=== PATIENT | male | born 1975 | race Caucasian/White ===

== ENCOUNTER 2021-09-21 09:08 | Emergency (ER) | payer OTHER ==
[~2021-09-21] VITALS: Ht 185.4 cm; Wt 79.4 kg
[~2021-09-21 09:08] MED LIST: HYDACE5 PO; IBUP800; NAPR500 PO; RXHYDACE PO; TRAM50 PO
[2021-09-21] MEDS ORDERED: IBUP600 PO (10:21)
[2021-09-21] MEDS ORDERED: BENADRYL25 MG PO (10:21)
[2021-09-21 10:45] LABS: BASOPHILS ABSOLUTE AUTO 0.01 K/mm3 (0.00-0.23); BASOPHILS PERCENT AUTO 0 % (0-2); EOSINOPHILS ABSOLUTE AUTO 0.12 K/mm3 (0.00-0.68); EOSINOPHILS PERCENT AUTO 2 % (0-6); Hematocrit 41.3 % (37.0-53.0); Hemoglobin 13.4 g/dL (13.5-17.5); IMMATURE GRAN ABSOLUTE AUTO 0.02 K/mm3 (0.00-0.10); IMMATURE GRAN PERCENT AUTO 0 % (0-1); LYMPHOCYTES ABSOLUTE AUTO 0.77 K/mm3 (0.84-5.20); LYMPHOCYTES PERCENT AUTO 15 % (21-46); MONOCYTES ABSOLUTE AUTO 0.52 K/mm3 (0.16-1.47); MONOCYTES PERCENT AUTO 10 % (4-13); Mean Corpuscular HGB Conc 32.4 g/dL (31.5-36.5); Mean Corpuscular Volume 99 fL (80-100); Mean Platelet Volume 9.5 fL (9.1-12.4); NEUTROPHILS ABSOLUTE AUTO 3.82 K/mm3 (1.96-9.15); NEUTROPHILS PERCENT AUTO 73 % (41-73); Platelet Count 111 K/mm3 (150-400); RDW Coefficient Variation 15.3 % (11.7-14.2); RDW Standard Deviation 55.8 fL (35.1-46.3); Red Blood Cell Count 4.19 M/mm3 (4.30-5.90); White Blood Cell Count 5.26 K/mm3 (4.00-11.30)
[2021-09-21 11:00] LABS: Alanine Aminotransfer (ALT/SGP 134 U/L (12-78); Albumin, Blood 3.4 g/dL (3.4-5.0); Albumin/Globulin Ratio 0.7 (0.8-1.8); Alk Phos 107 U/L (50-136); Anion Gap 11 mmol/L (6-16); Aspartate Aminotrans (AST/SGOT 187 U/L (12-37); Bilirubin, Total 0.6 mg/dL (0.1-1.0); Blood Urea Nitrogen 6 mg/dL (8-24); CO2, Blood 26 mmol/L (21-32); Calcium, Blood 8.8 mg/dL (8.5-10.1); Chloride, Blood 104 mmol/L (98-108); Creatinine, Blood 0.67 mg/dL (0.60-1.20); Globulin, Blood 4.6 g/dL (2.2-4.0); Glomerular Filtration Rate >60 (60-); Glucose, Blood 80 mg/dL (70-99); Potassium, Blood 4.1 mmol/L (3.5-5.5); Sodium, Blood 141 mmol/L (136-145)
== END 2021-09-21 11:20 | disposition home or self-care (01) ==
LOC: ER 09:08
PROVIDERS: Physician Assistant
DX: L25.9 Unspecified contact dermatitis, unspecified cause (principal)
CPT/HCPCS: 73130; 80053; 84550; 85025; 96374; 96375; 99283-25; J1200; J1885; J2930

== ENCOUNTER 2021-12-14 02:48 | Inpatient (IN) | payer OTHER ==
[~2021-12-14] VITALS: Ht 185.4 cm; Wt 90.0 kg
[~2021-12-14 02:48] MED LIST changes: +BENADRYL25 MG PO; +IBUP600 PO
[2021-12-14 03:25] LABS: BASOPHILS ABSOLUTE AUTO 0.03 K/mm3 (0.00-0.23); BASOPHILS PERCENT AUTO 0 % (0-2); EOSINOPHILS ABSOLUTE AUTO 0.08 K/mm3 (0.00-0.68); EOSINOPHILS PERCENT AUTO 1 % (0-6); Hematocrit 42.7 % (37.0-53.0); Hemoglobin 14.2 g/dL (13.5-17.5); IMMATURE GRAN ABSOLUTE AUTO 0.04 K/mm3 (0.00-0.10); IMMATURE GRAN PERCENT AUTO 0 % (0-1); LYMPHOCYTES ABSOLUTE AUTO 1.91 K/mm3 (0.84-5.20); LYMPHOCYTES PERCENT AUTO 15 % (21-46); MONOCYTES ABSOLUTE AUTO 0.66 K/mm3 (0.16-1.47); MONOCYTES PERCENT AUTO 5 % (4-13); Mean Corpuscular HGB 32.7 pg (26.0-34.0); Mean Corpuscular HGB Conc 33.3 g/dL (31.5-36.5); Mean Corpuscular Volume 98 fL (80-100); Mean Platelet Volume 10.1 fL (9.1-12.4); NEUTROPHILS ABSOLUTE AUTO 9.81 K/mm3 (1.96-9.15); NEUTROPHILS PERCENT AUTO 78 % (41-73); Platelet Count 118 K/mm3 (150-400); RDW Coefficient Variation 13.3 % (11.7-14.2); RDW Standard Deviation 48.1 fL (35.1-46.3); Red Blood Cell Count 4.34 M/mm3 (4.30-5.90); White Blood Cell Count 12.53 K/mm3 (4.00-11.30)
[2021-12-14 03:36] LABS: Salicylate 6.4 mg/dL (2.8-20.0)
[2021-12-14 03:44] LABS: Source, Urine Clean Catch
[2021-12-14 03:47] LABS: Bilirubin, Urine Neg (Neg); Blood, Urine Neg (Neg); Glucose Qualitative, Urine Neg (Neg); Ketones, Urine Neg (Neg); Leukocyte Esterase, Urine 1+ (Neg); Nitrite, Urine Neg (Neg); Protein, Urine Neg (Neg); Urobilinogen, Urine NORM (Normal)
[2021-12-14 03:53] LABS: Appearance, Urine Clear (Clear); Bacteria Rare /hpf; Color, Urine Yellow (P-Yellow); Red Blood Cells, Urine Not Seen /hpf (0-2); Squamous Epithelial Cells Rare /hpf (Few); White Blood Cells, Urine 0-2 /hpf (0-5)
[2021-12-14 04:03] LABS: Ethanol (Alcohol), Blood, Med <3 mg/dL
[2021-12-14 04:07] LABS: Acetaminophen, Random <2.0 ug/mL (10.0-30.0); Alanine Aminotransfer (ALT/SGP 20 U/L (12-78); Albumin, Blood 3.4 g/dL (3.4-5.0); Albumin/Globulin Ratio 0.7 (0.8-1.8); Alk Phos 80 U/L (50-136); Anion Gap 6 mmol/L (6-16); Aspartate Aminotrans (AST/SGOT 23 U/L (12-37); Bilirubin, Total 0.7 mg/dL (0.1-1.0); Blood Urea Nitrogen 14 mg/dL (8-24); Bun/Creatinine Ratio 14.3 (12.0-20.0); CO2, Blood 28 mmol/L (21-32); Calcium, Blood 10.2 mg/dL (8.5-10.1); Chloride, Blood 101 mmol/L (98-108); Creatinine, Blood 0.98 mg/dL (0.60-1.20); Globulin, Blood 4.7 g/dL (2.2-4.0); Glomerular Filtration Rate 97 (60-); Glucose, Blood 159 mg/dL (70-99); Potassium, Blood 3.7 mmol/L (3.5-5.5); Sodium, Blood 135 mmol/L (136-145); Total Protein, Blood 8.1 g/dL (6.4-8.2)
[2021-12-14 04:19] LABS: U Amphetamine Screen Not Detected; U Barbituate Screen Not Detected; U Benzodiazapine Screen DETECTED; U Buprenorphine Screen Not Detected; U Cannabinoids Screen DETECTED; U Cocaine Screen Not Detected; U Methadone Screen Not Detected; U Methamphetamine Screen Not Detected; U Opiates Screen Not Detected; U Oxycodone Screen Not Detected; U Phencyclidine Screen Not Detected; U Propoxyphene Screen Not Detected
[2021-12-14 07:10] LABS: Magnesium, Blood 1.9 mg/dL (1.6-2.4); Phosphorus, Blood 2.7 mg/dL (2.5-4.9)
[2021-12-14 10:14] LABS: Source, Urine Foley catheter
[2021-12-14 10:18] LABS: Appearance, Urine Clear (Clear); Bilirubin, Urine Neg (Neg); Blood, Urine Neg (Neg); Color, Urine Yellow (P-Yellow); Glucose Qualitative, Urine Neg (Neg); Ketones, Urine Neg (Neg); Leukocyte Esterase, Urine Neg (Neg); Nitrite, Urine Neg (Neg); Protein, Urine Neg (Neg); Urobilinogen, Urine NORM (Normal)
--- NOTE | 2021-12-14 12:53 | NUR ---
UPDATE: ASSUMED CARE OF PT AT 0810, PT ARRIVED TO UNIT VIA STRETCHER, WITH SECURITY. PT VERY AGITATED ON ARRIVAL, ATTEMPTING TO GET OOB AND PULLING ON LINES, YELLING PROFANITIES. VEST RESTRAINT APPLIED. PT SWINGING HANDS AT STAFF AND INTERFERING WITH CARE, BILATERAL SOFT WRIST RESTRAINTS APPLIED. CALLED TO BEDSIDE. ORDERS TO GIVE 8MG OF IV ATIVAN, AND INITIATE PRECEDEX DRIP. PRECEDEX DRIP STARTED AT 0.2MCG/KG/HR, SINCE HAS BEEN TITRATED TO 0.5MCG/KG/HR, SEE FLOW SHEET. PT ON ROOM AIR WITH SPO2 ABOVE 90% PT IN SR WITH HR IN THE 60'S, BLOOD PRESSURE STABLE. ACTIVE BOWEL TONES IN ALL QUADRANTS. 16 [place] TEMP CASE PLACED WITH SOME DIFFICULTY. WILL CONTINUE TO MONITOR PT.
--- NOTE | 2021-12-14 18:40 | NUR ---
SHIFT SUMMARY: SEE PREVIOUS NOTES. PT RESPONDS TO NOXIOUS STIMULI. PT CONTINUES TO BE ON PRECEDEX DRIP AT 0.4MCG/KG/HR. AT 1800 PT WAS ABLE TO STATE PL[address]/YEAR, PT STATED " I CAME FROM [place] CAUSE OF MY DRINKING" Q2HR CIWA'S OBTAINED T/O SHIFT. PT REMAINS ON RA WITH SPO2 ABOVE 90%, PT SNORING, HOB MAINTAINED ABOVE 30 DEGREES. PT IN SR WITH HR IN THE 60-70'S, BP STABLE. PT'S ABD IS SOFT, ACTIVE BOWEL TONES IN ALL QUADRANTS, NO BM THIS SHIFT. PT HAD GOOD URINE OUTPUT T/O SHIFT VIA CASE. PT REMAINS IN BILATERAL WRIST RESTRAINTS AND LILLIE. WILL CONTINUE TO MONITOR PT UNTIL REPORT IS GIVEN TO ONCOMING SHIFT.
--- NOTE | 2021-12-14 19:15 | NUR ---
PT REPORT RECEIVED, SAFETY CHECK COMPLETED, ASSUMED PT CARE.
[2021-12-15 03:46] LABS: BASOPHILS ABSOLUTE AUTO 0.03 K/mm3 (0.00-0.23); BASOPHILS PERCENT AUTO 0 % (0-2); EOSINOPHILS ABSOLUTE AUTO 0.12 K/mm3 (0.00-0.68); EOSINOPHILS PERCENT AUTO 1 % (0-6); Hematocrit 43.7 % (37.0-53.0); Hemoglobin 14.6 g/dL (13.5-17.5); IMMATURE GRAN ABSOLUTE AUTO 0.03 K/mm3 (0.00-0.10); IMMATURE GRAN PERCENT AUTO 0 % (0-1); LYMPHOCYTES ABSOLUTE AUTO 1.79 K/mm3 (0.84-5.20); LYMPHOCYTES PERCENT AUTO 15 % (21-46); MONOCYTES ABSOLUTE AUTO 0.69 K/mm3 (0.16-1.47); MONOCYTES PERCENT AUTO 6 % (4-13); Mean Corpuscular HGB 32.7 pg (26.0-34.0); Mean Corpuscular HGB Conc 33.4 g/dL (31.5-36.5); Mean Corpuscular Volume 98 fL (80-100); Mean Platelet Volume 10.2 fL (9.1-12.4); NEUTROPHILS ABSOLUTE AUTO 9.47 K/mm3 (1.96-9.15); NEUTROPHILS PERCENT AUTO 78 % (41-73); Platelet Count 113 K/mm3 (150-400); RDW Coefficient Variation 13.2 % (11.7-14.2); RDW Standard Deviation 47.4 fL (35.1-46.3); Red Blood Cell Count 4.47 M/mm3 (4.30-5.90); White Blood Cell Count 12.13 K/mm3 (4.00-11.30)
[2021-12-15 04:05] LABS: Albumin, Blood 3.2 g/dL (3.4-5.0); Albumin/Globulin Ratio 0.7 (0.8-1.8); Bilirubin, Total 0.7 mg/dL (0.1-1.0); Bun/Creatinine Ratio 10.1 (12.0-20.0); Calcium, Blood 9.1 mg/dL (8.5-10.1); Creatinine, Blood 0.69 mg/dL (0.60-1.20); Globulin, Blood 4.4 g/dL (2.2-4.0); Magnesium, Blood 1.6 mg/dL (1.6-2.4); Phosphorus, Blood 2.4 mg/dL (2.5-4.9); Potassium, Blood 3.7 mmol/L (3.5-5.5); Total Protein, Blood 7.6 g/dL (6.4-8.2)
--- NOTE | 2021-12-15 06:06 | NUR ---
SHIFT SUMARY: PT INITIALLY CALM AND ORIENTED X4 WITH CIWA OF 7-9 AND PRECEDEX RUNNING AT 0.4. PT ABLE TO TOLLERATE REMOVAL OF SOFT WRIST RESTRAINTS. PT BECAME INCREASINGLY MORE CONFUSED AND RESTLESS THROUGH THE NIGHT AND TRIED TO GET OUT OF BED TO "GO SMOKE A CIGARETTE" RESTRAINT VEST KEPT IN PLACE. PT MEDICATED FOR ELEVATED CIWA'S PER ORDERS IN AUG. PRECEDEX INCREASED TO 0.6. PT ABLE TO TOLLERATE PO MEDICATION AND FLUIDS WELL OVER NIGHT. PT CONTINUES IN VEST RESTRAINT AND IS ABLE TO TURN AND BOOST HIMSELF IN BED. 1600 ML OUT OF THE CASE CATHETER OVER NIGHT.
--- NOTE | 2021-12-15 11:30 | NUR ---
ASSUMED CARE NOTE: ASSUMED CARE OF PT AT 0700. PT IS A/OX3, PT FOLLOWING COMMANDS AND COMMUNICATING NEEDS. CURRENT CIWA 5. PRECEDEX OFF. CASE MANAGMENT IN TO SEE PATEINT, HE AGREED TO GO TO REHAB IF A LOCAL BED IS OPEN. PT ON 4 LITERS OF O2 VIA NC WITH SPO2 ABOVE 90% PT RR BETWEEN 20-30, FLUTTER VALVE ORDERED. PT IN SR WITH HR IN THE 70'S. BP STABLE. PT/OT AND SPEECH THERAPY TO EVALUATE PATIENT.
--- NOTE | 2021-12-15 18:45 | NUR ---
SHIFT SUMMARY: SEE PREVIOUS NOTES. PT IS A/OX3, ABLE TO FOLLOW COMMANDS AND COMMUNICATE NEEDS. PT CAN BE FORGETFUL AT TIMES. LATEST CIWA 8, MEDS GIVEN PER AUG. REMOVED O2 VIA NC, PT ON RA WITH SPO2 ABOVE 90% PT IN SR WITH HR IN THE 90'S, BP STABLE. ABD SOFT, NON-DISTENDED, NO BM THIS SHIFT, PT ATE 100% OF DINNER WITHOUT DIFFICULTIES. PT HAD 2700 ML OF CLEAR URINE OUTPUT VIA CASE THIS SHIFT. PT AMBULATED TO CHAIR FOR DINNER, PT MORE STEADY ON HIS FEET. WILL CONTINUE TO MONITOR PT UNTIL REPORT IS GIVEN TO ONCOMING SHIFT.
--- NOTE | 2021-12-15 19:00 | NUR ---
PT REPORT RECEIEVED, SAFETY CHECK COMPLETED, ASSUMED PT CARE.
--- NOTE | 2021-12-16 06:08 | NUR ---
SHIFT SUMMARY: PT HAS BEEN ALERT AND ORIENTED THROUGHOUT THE NIGHT BUT HAS HAD EPISODES OF INCREASED CIWA SCORES AND GIVEN PRN MEDICATION FOR SYMPTOM MANAGEMENT. PT WAS TAKEN OUT OF RESTRAINTS AROUND 2100 BUT BED ALARM CONTINUES TO BE ON. ORDER WAS RECEIVED TO DC MAINTENANCE IV FLUIDS HE IS TOLLERATING PO FLUID VERY WELL. PT STATED NEED TO VOID DESPITE GOOD DRAINAGE FROM THE CASE AND THE OT ASKED FOR THE CASE TO BE REMOVED, WHICH WAS DONE. CIWA SCORES HAVE BEEN HIGH 16 OVER NIGHT AND PRN PO ATIVAN AND LIBRIUM WERE GIVEN, WHICH HAS MOSTLY CONTROLLED THE PT'S CIWA SCORES. PT STATES THAT HE WANTS TO GO HOME AND GET CLEAN CLOTHING BEFORE HE GOES BACK TO THE TREATMENT CENTER. VSS OVER NIGHT WITH GOOD URINE OUTPUT.
--- NOTE | 2021-12-16 08:46 | NUR ---
PATIENT STARTED DAY DISTRESSED, ANXIOUS, FIDIGITING, STATING WE NEEDS TO LEAVE, PATIENT EDUCATED OF AMA RISKS AND REASONS TO STAY BY THIS RN ESPERANZA, CHARGE NURSE ARAVIND RN, PT, AND ANGELITO RN. PATIENT CONTINUED TO REQUEST TO LEAVE, BECAME ADIMIT AND LOUD, PATIENT SIGNED AMA PAPER WORK, WALKED OFF OF HOSPITAL GROUNDS
== END 2021-12-16 08:20 | disposition left against medical advice (07) | DRG 894 ==
LOC: ER 02:48 → ICUW 06:39
PROVIDERS: Student in an Organized Health Care Education/Training Program; ADMIT Family Medicine
PROC: HZ2ZZZZ Detoxification Services for Substance Abuse Treatment (ICD-10-PCS; principal; 2021-12-14)
DX: F10.231 Alcohol dependence with withdrawal delirium (principal); G93.41 Metabolic encephalopathy; F17.210 Nicotine dependence, cigarettes, uncomplicated; R25.1 Tremor, unspecified; R41.0 Disorientation, unspecified; R25.3 Fasciculation; R44.1 Visual hallucinations; E83.39 Other disorders of phosphorus metabolism; E87.6 Hypokalemia
CPT/HCPCS: 36415; 51703; 80053; 81001; 81003; 83690; 83735; 84100; 85025; 93005; 93010; 96372-59; 96374; 96375; 96376; 97110; 97161; 99285-25; A9270; G0480; J1650; J2060; J3360; J3411; J3480; J7030; J7050; J7060

== ENCOUNTER 2021-12-17 16:25 | Inpatient (IN) | payer OTHER ==
[~2021-12-17] VITALS: Ht 190.5 cm; Wt 77.5 kg
[2021-12-17 17:17] LABS: BASOPHILS ABSOLUTE AUTO 0.04 K/mm3 (0.00-0.23); BASOPHILS PERCENT AUTO 1 % (0-2); EOSINOPHILS ABSOLUTE AUTO 0.14 K/mm3 (0.00-0.68); EOSINOPHILS PERCENT AUTO 2 % (0-6); Hemoglobin 13.8 g/dL (13.5-17.5); IMMATURE GRAN ABSOLUTE AUTO 0.05 K/mm3 (0.00-0.10); IMMATURE GRAN PERCENT AUTO 1 % (0-1); LYMPHOCYTES ABSOLUTE AUTO 2.19 K/mm3 (0.84-5.20); LYMPHOCYTES PERCENT AUTO 26 % (21-46); MONOCYTES PERCENT AUTO 12 % (4-13); Mean Corpuscular HGB 32.9 pg (26.0-34.0); Mean Corpuscular HGB Conc 34.5 g/dL (31.5-36.5); Mean Corpuscular Volume 95 fL (80-100); Mean Platelet Volume 9.5 fL (9.1-12.4); NEUTROPHILS ABSOLUTE AUTO 5.01 K/mm3 (1.96-9.15); NEUTROPHILS PERCENT AUTO 59 % (41-73); Platelet Count 175 K/mm3 (150-400); RDW Coefficient Variation 13.2 % (11.7-14.2); RDW Standard Deviation 46.5 fL (35.1-46.3); White Blood Cell Count 8.43 K/mm3 (4.00-11.30)
[2021-12-17 17:36] LABS: Phosphorus, Blood 4.9 mg/dL (2.5-4.9)
[2021-12-17 17:42] LABS: Albumin, Blood 3.8 g/dL (3.4-5.0); Albumin/Globulin Ratio 0.7 (0.8-1.8); Bilirubin, Total 0.8 mg/dL (0.1-1.0); Calcium, Blood 10.1 mg/dL (8.5-10.1); Creatinine, Blood 1.43 mg/dL (0.60-1.20); Globulin, Blood 5.1 g/dL (2.2-4.0); Potassium, Blood 3.2 mmol/L (3.5-5.5); Total Protein, Blood 8.9 g/dL (6.4-8.2)
[2021-12-17 22:03] LABS: Magnesium, Blood 1.8 mg/dL (1.6-2.4)
[2021-12-17 23:10] LABS: Base Excess Venous 2.2 mmol/L; Bicarbonate Venous 25.7 mmol/L (24.0-30.0); PCO2 Venous 45.8 mmHg (38-42); pH Blood Venous 7.38 (7.34-7.37)
[2021-12-18 01:58] LABS: Source, Urine Clean Catch
[2021-12-18 02:04] LABS: Bilirubin, Urine Neg (Neg); Blood, Urine 5+ (Neg); Glucose Qualitative, Urine Neg (Neg); Ketones, Urine Neg (Neg); Leukocyte Esterase, Urine Neg (Neg); Nitrite, Urine Neg (Neg); Protein, Urine Neg (Neg); Urobilinogen, Urine NORM (Normal)
[2021-12-18 02:06] LABS: Appearance, Urine Clear (Clear); Color, Urine Yellow (P-Yellow)
[2021-12-18 02:12] LABS: Bacteria Not Seen /hpf; Squamous Epithelial Cells Rare /hpf (Few); White Blood Cells, Urine Not Seen /hpf (0-5)
[2021-12-18 02:17] LABS: U Amphetamine Screen Not Detected; U Barbituate Screen Not Detected; U Benzodiazapine Screen DETECTED; U Buprenorphine Screen Not Detected; U Cannabinoids Screen DETECTED; U Cocaine Screen Not Detected; U Methadone Screen Not Detected; U Methamphetamine Screen Not Detected; U Opiates Screen Not Detected; U Oxycodone Screen Not Detected; U Phencyclidine Screen Not Detected; U Propoxyphene Screen Not Detected
[2021-12-18 02:31] LABS: Influenza A, PCR NEGATIVE (NEGATIVE); Influenza B, PCR NEGATIVE (NEGATIVE); Resp Syncytial Virus, PCR NEGATIVE (NEGATIVE); SARS-Cov-2 (COVID-19) PCR, MMC NEGATIVE (NEGATIVE)
[2021-12-18 03:44] LABS: BASOPHILS ABSOLUTE AUTO 0.03 K/mm3 (0.00-0.23); BASOPHILS PERCENT AUTO 0 % (0-2); EOSINOPHILS ABSOLUTE AUTO 0.23 K/mm3 (0.00-0.68); EOSINOPHILS PERCENT AUTO 3 % (0-6); Hemoglobin 13.5 g/dL (13.5-17.5); IMMATURE GRAN ABSOLUTE AUTO 0.04 K/mm3 (0.00-0.10); IMMATURE GRAN PERCENT AUTO 1 % (0-1); LYMPHOCYTES ABSOLUTE AUTO 1.84 K/mm3 (0.84-5.20); LYMPHOCYTES PERCENT AUTO 26 % (21-46); MONOCYTES ABSOLUTE AUTO 1.06 K/mm3 (0.16-1.47); MONOCYTES PERCENT AUTO 15 % (4-13); Mean Corpuscular HGB 32.3 pg (26.0-34.0); Mean Corpuscular HGB Conc 32.9 g/dL (31.5-36.5); Mean Corpuscular Volume 98 fL (80-100); Mean Platelet Volume 9.5 fL (9.1-12.4); NEUTROPHILS PERCENT AUTO 54 % (41-73); Platelet Count 178 K/mm3 (150-400); RDW Coefficient Variation 13.2 % (11.7-14.2); RDW Standard Deviation 47.6 fL (35.1-46.3); Red Blood Cell Count 4.18 M/mm3 (4.30-5.90)
[2021-12-18 04:04] LABS: Albumin, Blood 3.2 g/dL (3.4-5.0); Albumin/Globulin Ratio 0.7 (0.8-1.8); Bilirubin, Total 1.1 mg/dL (0.1-1.0); Bun/Creatinine Ratio 8.8 (12.0-20.0); Calcium, Blood 9.5 mg/dL (8.5-10.1); Creatinine, Blood 1.13 mg/dL (0.60-1.20); Globulin, Blood 4.4 g/dL (2.2-4.0); Potassium, Blood 4.6 mmol/L (3.5-5.5); Total Protein, Blood 7.6 g/dL (6.4-8.2)
--- NOTE | 2021-12-18 05:41 | NUR ---
SHIFT SUMMERY PT HAS RESTED WELL THROUGHOUT THE NIGHT. VS HAVE BEEN WNL. THERE WERE NO ACUTE EVENTS OVERNIGHT.
--- NOTE | 2021-12-18 08:46 | NUR ---
CARE OF PT ASSUMED AT 0700. PT DROWSY, DOES AWKEN TO VOICE. CIWA 7, PT HAS TREMORS AND IS ORIENTED TO SELF. OFF BY A COUPLE DAYS, AND THOUGHT HE WAS AT [facility]. PT CALM AND COOPERATIVE. EVALUATED BY SPEECH THIS AM, SOFT TRAY ORDERED PT MISSING MANY TEETH. PHYSICAL THERAPY WORKING W PT NOW. LIBRIUM GIVEN TO PT. PT HAS BARKY COUGH, LUNGS CLEAR. DESATURATED TO 87% WHILE SLEEPING, 2L VIA N/C PLACED. VSS.
--- NOTE | 2021-12-18 12:02 | NUR ---
DR ROSENTHAL IN TO SEE PT. PT NOW PCU STATUS. PT SLEEPING. REPORT TO BE CALLED TO MUSCULOSKELETAL PHYSIOTHERAPIST.
--- NOTE | 2021-12-18 13:05 | NUR ---
REPORT GIVEN TO SOFTWARE TEST DEVELOPER. PT SLEEPING, CALM, APPEARS COMFORTABLE. VSS.
--- NOTE | 2021-12-18 17:40 | NUR ---
SHIFT SUMMARY: PT TRANSFERED FROM ICU, ARRIVING APPROX 1345. PT SLEEPING OFTEN, AROUSES TO NAME AND TOUCH BUT CONTINUES DROWSY. PT ANSWERS QUESTIONS BUT DRIFTS OFF IN THE MIDDLE OF SENTENCES, DIFFICULT TO EVALUATE MENTATION. PT MAINTAINING O2 SATS >92% ON 1 L/MIN VIA NC, OCCASIONAL COARSE/BARKY COUGH NOTED. SR ON MONITOR. INDWELLING CASE PATENT, DRAINING TO GRAVITY. PT RESTS QUIETLY IN ROOM UNTIL APPROX 1700 WHEN PT NOTED TO BE MORE RESTLESS, DIAPHORETIC, INCREASED HR (120s FROM 90s). PT DENIES CHEST PAIN/PRESSURE. CIWA SCORED 9, PT MEDICATED WITH PO LIBRIUM AND TOLERATES WELL. CURRENTLY, PT RESTING WITH EYES CLOSED, NADN, CALL LIGHT WITHIN REACH. WILL CONTINUE TO MONITOR AND TREAT ACCORDINGLY UNTIL CHANGE OF SHIFT.
--- NOTE | 2021-12-18 19:17 | NUR ---
CARE ASSUMPTION: RECEIVED REPORT FROM MASSIMO Angeles RN. PATIENT ASLEEP, HR AND O2 WNL ON RA.
--- NOTE | 2021-12-18 19:19 | NUR ---
CARE ASSUMPTION: RECEIVED REPORT FROM MASSIMO Angeles RN. PATIENT ASLEEP IN BED AND DIFFICULT TO AROUSE. NC HAD FALLEN OUT OF PATIENT'S NARES THOUGH O2 SATS WERE 93%. REPLACED NC. BED LOW WITH CALL LIGHT IN REACH.
[2021-12-19 04:57] LABS: BASOPHILS ABSOLUTE AUTO 0.04 K/mm3 (0.00-0.23); BASOPHILS PERCENT AUTO 0 % (0-2); EOSINOPHILS ABSOLUTE AUTO 0.01 K/mm3 (0.00-0.68); EOSINOPHILS PERCENT AUTO 0 % (0-6); Hematocrit 42.8 % (37.0-53.0); Hemoglobin 13.7 g/dL (13.5-17.5); IMMATURE GRAN ABSOLUTE AUTO 0.05 K/mm3 (0.00-0.10); IMMATURE GRAN PERCENT AUTO 0 % (0-1); LYMPHOCYTES ABSOLUTE AUTO 0.81 K/mm3 (0.84-5.20); LYMPHOCYTES PERCENT AUTO 6 % (21-46); MONOCYTES ABSOLUTE AUTO 1.16 K/mm3 (0.16-1.47); MONOCYTES PERCENT AUTO 9 % (4-13); Mean Corpuscular HGB 32.1 pg (26.0-34.0); Mean Corpuscular Volume 100 fL (80-100); Mean Platelet Volume 9.5 fL (9.1-12.4); NEUTROPHILS ABSOLUTE AUTO 11.47 K/mm3 (1.96-9.15); NEUTROPHILS PERCENT AUTO 85 % (41-73); Platelet Count 214 K/mm3 (150-400); RDW Coefficient Variation 13.2 % (11.7-14.2); RDW Standard Deviation 49.2 fL (35.1-46.3); Red Blood Cell Count 4.27 M/mm3 (4.30-5.90); White Blood Cell Count 13.54 K/mm3 (4.00-11.30)
[2021-12-19 05:27] LABS: Albumin, Blood 3.3 g/dL (3.4-5.0); Albumin/Globulin Ratio 0.7 (0.8-1.8); Bilirubin, Total 0.9 mg/dL (0.1-1.0); Bun/Creatinine Ratio 10.1 (12.0-20.0); Calcium, Blood 9.8 mg/dL (8.5-10.1); Creatinine, Blood 0.99 mg/dL (0.60-1.20); Globulin, Blood 4.6 g/dL (2.2-4.0); Magnesium, Blood 1.8 mg/dL (1.6-2.4); Phosphorus, Blood 1.6 mg/dL (2.5-4.9); Potassium, Blood 3.7 mmol/L (3.5-5.5); Total Protein, Blood 7.9 g/dL (6.4-8.2)
--- NOTE | 2021-12-19 06:02 | NUR ---
SHIFT SUMMARY: PATIENT HR 90-110S AND CIWAS 2-14. PATIENT LETHARGIC AND SLEPT MOST OF THE SHIFT. COOPERATIVE WITH CARE AND APPROPRIATE. PATIENT HAD ORAL TEMP OF 100.5* THIS AM BUT DID NOT HAVE TYLENOL IN EMAR. SPOKE WITH DR. LEYLA MILLER AND RECEIVED ORDER. MEDICATED PER EMAR. BED LOW WITH CALL LIGHT IN PLACE AND ALARM SET. WILL CONTINUE TO MONITOR AND REPORT TO ONCOMING RN.
[2021-12-19 14:21] LABS: Source, Urine Foley catheter
[2021-12-19 14:28] LABS: Appearance, Urine Hazy (Clear); Bilirubin, Urine Neg (Neg); Blood, Urine 5+ (Neg); Color, Urine Yellow (P-Yellow); Glucose Qualitative, Urine Neg (Neg); Ketones, Urine 1+ (Neg); Leukocyte Esterase, Urine 2+ (Neg); Nitrite, Urine Neg (Neg); Protein, Urine 1+ (Neg); Urobilinogen, Urine 1+ (Normal)
[2021-12-19 15:41] LABS: Bacteria Mod /hpf; Mucus Light (0-Heavy); Red Blood Cells, Urine TNTC /hpf (0-2); Squamous Epithelial Cells Rare /hpf (Few); White Blood Cells, Urine 50-100 /hpf (0-5)
--- NOTE | 2021-12-19 16:32 | NUR ---
SHIFT SUMMARY: NO ACUTE CHANGES TO PT STATUS T/OUT SHIFT TODAY. PT SLEEPS OFTEN, AROUSES TO TOUCH, DROWSY WITH A COUPLE LUCID MOMENTS WHERE HE ANSWERS QUESTIONS BUT DRIFTS OFF TO SLEEP. PT ORIENTED TO SELF, SITUATION. STATES HE IS IN THE HOSPITAL BUT SAYS IT IS "[facility] [place]", WHEN CORRECTED HE SAYS [place]. PT W/PERIODS OF INCREASED AGITATION, CIWA SCORED AND PT MEDICATED PER EMAR. O2 SATS MAINTAINED >92% ON RA, SR/ST ON MONITOR W/RATE 80s-110s. PT UP WITH OT/PT, SPENDS PART OF THE DAY IN BEDSIDE CHAIR. AT THIS TIME, PT RESTING QUIETLY IN BED, CALL LIGHT WITHIN REACH. WILL CONTINUE TO MONITOR AND TREAT ACCORDINGLY.
--- NOTE | 2021-12-19 20:42 | NUR ---
CARE ASSUMPTION: PATIENT ASLEEP IN BED, DIFFICULT TO AROUSE BUT FOLLOWS INSTRUCTIONS. LUNGS SOUND CLEARER THAN YESTERDAY, STILL HAS BARKY COUGH. CIWA 8. CASE DRAINING TO GRAVITY. BED LOW WITH CALL LIGHT IN REACH.
[2021-12-20 04:22] LABS: BASOPHILS ABSOLUTE AUTO 0.05 K/mm3 (0.00-0.23); BASOPHILS PERCENT AUTO 0 % (0-2); EOSINOPHILS ABSOLUTE AUTO 0.04 K/mm3 (0.00-0.68); EOSINOPHILS PERCENT AUTO 0 % (0-6); Hematocrit 40.7 % (37.0-53.0); Hemoglobin 13.1 g/dL (13.5-17.5); IMMATURE GRAN ABSOLUTE AUTO 0.07 K/mm3 (0.00-0.10); IMMATURE GRAN PERCENT AUTO 1 % (0-1); LYMPHOCYTES ABSOLUTE AUTO 1.49 K/mm3 (0.84-5.20); LYMPHOCYTES PERCENT AUTO 11 % (21-46); MONOCYTES ABSOLUTE AUTO 1.66 K/mm3 (0.16-1.47); MONOCYTES PERCENT AUTO 12 % (4-13); Mean Corpuscular HGB 32.2 pg (26.0-34.0); Mean Corpuscular HGB Conc 32.2 g/dL (31.5-36.5); Mean Corpuscular Volume 100 fL (80-100); Mean Platelet Volume 9.4 fL (9.1-12.4); NEUTROPHILS ABSOLUTE AUTO 10.36 K/mm3 (1.96-9.15); NEUTROPHILS PERCENT AUTO 76 % (41-73); Platelet Count 251 K/mm3 (150-400); RDW Coefficient Variation 13.2 % (11.7-14.2); RDW Standard Deviation 49.1 fL (35.1-46.3); Red Blood Cell Count 4.07 M/mm3 (4.30-5.90); White Blood Cell Count 13.67 K/mm3 (4.00-11.30)
[2021-12-20 04:42] LABS: Albumin/Globulin Ratio 0.7 (0.8-1.8); Bilirubin, Total 0.6 mg/dL (0.1-1.0); Bun/Creatinine Ratio 11.1 (12.0-20.0); Calcium, Blood 9.4 mg/dL (8.5-10.1); Creatinine, Blood 0.99 mg/dL (0.60-1.20); Globulin, Blood 4.5 g/dL (2.2-4.0); Potassium, Blood 3.6 mmol/L (3.5-5.5); Total Protein, Blood 7.5 g/dL (6.4-8.2)
--- NOTE | 2021-12-20 06:07 | NUR ---
SHIFT SUMMARY: PATIENT REMAINS LETHARGIC, GARBLED SPEECH, CIWA 4-16, SKIN FLUSHED. DENIES SOB OR CHEST PAIN, SOME MILD NAUSEA AND HEADACHE. PATIENT WAS ALERT FOR 30-60 MIN AROUND 2130. PATIENT SPIKED A FEVER OF 103.3 DURNING MIDNIGHT VITALS. MEDICATED PER EMAR. CASE DRAINING BRITTANIE URINE TO GRAVITY. BED LOW WITH CALL LIGHT IN REACH AND BED ALARM SET. WILL CONTINUE TO MONITOR AND REPORT TO ONCOMING RN.
--- NOTE | 2021-12-20 18:25 | NUR ---
SHIFT SUMMARY: PT MENTATION CONTINUES TO CLEAR T/OUT TODAY, ORIENTED TO SELF, SITUATION, LOCATION. CIWAs NEGATIVE. PT AFEBRILE AND DENIES NAUSEA, HEADACHE, TREMORS, HALLUCINATIONS, SOB T/OUT SHIFT. PT COOPERATIVE WITH CARE, USES CALL LIGHT APPROPRIATELY, REPORTS GENERALLY FEELING BETTER. INDWELLING CASE CATHETER DC'd, SOME INITIAL BLEEDING AT URETHRAL OPENING, PT DENIES PAIN AND IS ABLE TO VOID INDEPENDENTLY T/OUT DAY. PT MAINTAINS O2 SATS >92% ON RA OR 1-2 L/MIN NC (SLEEP), BARKY COUGH CONTINUES BUT PT DENIES SPUTUM PRODUCTION. WILL CONTINUE TO MONITOR AND TREAT ACCORDINGLY UNTIL CHANGE OF SHIFT.
--- NOTE | 2021-12-20 21:03 | NUR ---
CARE ASSUMPTION: PATIENT A&O X4, APPROPRIATE AND COOPERATIVE. VS WNL ON RA AND LUNG SOUNDS CLEAR T/O. BED LOW WITH ALARM ON. CALL LIGHT IN REACH.
--- NOTE | 2021-12-21 00:18 | NUR ---
TRANSFER OF CARE: GAVE REPORT TO TANYA BARNEY RN. PATIENT TO MOVE TO [facility] RM [id number].
--- NOTE | 2021-12-21 00:45 | NUR ---
ASSUMED PATIENT CARE- AGREE WITH PRIOR RN (SOPHY KOTHARI) ASSESSMENT. NO CHANGES AT THIS TIME.
--- NOTE | 2021-12-21 08:29 | NUR ---
pt laying in bed watching tv, a/ox3, cooperative with care, follows commands well, denies any complaints of pain, or withdrawl, states he feels good, lungs are clear a bit dim in bases, resp even and unlabored, no cough noted, hrr, tele in place running sr per monitor, see strip, no edema noted, ppp+2, cap refill<3sec, vs stable, afebrile, piv site is clear and patent, btx4, abd flat soft nontender, voids without diff, skin c/w/d, maew, right pupil is dialated, pt reports injury from a paint ball and has diminished sight from that eye, call light in reach.
--- NOTE | 2021-12-21 08:33 | NUR ---
SHIFT SUMMARY: A/OX4, STEPHENWA'S RATING REMAINS A SCORE OF 1. STANDBY ASSIST TO BATHROOM. NO PAIN THROUGHOUT THE SHIFT. CALL CHAVEZ AND BELONGINGS IN REACH, BED IN LOW POSITION, BED ALARM ACTIVATED. PT CALLS APPROPRIATLEY AND MAKES NEED KNOWN. NO ACUTE CHANGES THROUGHOUT THE NIGHT.
[2021-12-21] MEDS ORDERED: FOLI1 PO (12:14)
[2021-12-21] MEDS ORDERED: Hair, Skin & N1 EACH PO (12:15)
[2021-12-21] MEDS ORDERED: CEFP200 PO (12:16)
[2021-12-21] MEDS ORDERED: B-1100 M1 PO (12:16)
--- NOTE | 2021-12-21 12:49 | NUR ---
pt has been discharged to home, went over instructions with him, he verbalized understanding, iv removed intact, [facility] medications [facility]. getting dressed and will call when ready for wheelchair.
--- NOTE | 2021-12-21 13:50 | NUR ---
pt left via wheelchair with channel man in attendence and all his belongings.
== END 2021-12-21 13:07 | disposition home or self-care (01) | DRG 896 ==
LOC: ER 16:25 → ICUW 16:26 → ICUE 21:54 → PCU 12-18 13:39 → MEDS 12-21 00:35
PROVIDERS: Hospitalist; Nurse Practitioner Acute Care; Physician Assistant; Student in an Organized Health Care Education/Training Program; ADMIT Internal Medicine
PROC: HZ2ZZZZ Detoxification Services for Substance Abuse Treatment (ICD-10-PCS; principal; 2021-12-17)
DX: F10.239 Alcohol dependence with withdrawal, unspecified (principal); G92.8 Other toxic encephalopathy; N17.9 Acute kidney failure, unspecified; N39.0 Urinary tract infection, site not specified; Z20.822 Contact with and (suspected) exposure to COVID-19; F10.20 Alcohol dependence, uncomplicated; F17.210 Nicotine dependence, cigarettes, uncomplicated; S09.90XA Unspecified injury of head, initial encounter; E87.6 Hypokalemia; E86.0 Dehydration; F12.10 Cannabis abuse, uncomplicated; M48.02 Spinal stenosis, cervical region; K70.10 Alcoholic hepatitis without ascites; D53.9 Nutritional anemia, unspecified; V86.56XA Driver of dirt bike or motor/cross bike injured in nontraffic accident, initial encounter; Y90.4 Blood alcohol level of 80-99 mg/100 ml
CPT/HCPCS: 0241U; 36415; 51702; 70450; 71045; 72125; 80053; 81001; 82803; 83690; 83735; 84100; 85025; 87086; 90471; 90714; 92526; 92610; 94762; 96365; 96372; 96375; 97110; 97112; 97116; 97162; 97166; 97530; 97535; 99285-25; A9270; G0378; G0480; J0456; J0696; J1650; J2405; J3411; J3480; J7050; J7060; J7120

== ENCOUNTER 2022-04-14 15:02 | Emergency (ER) | payer OTHER ==
[~2022-04-14] VITALS: Ht 185.4 cm; Wt 86.2 kg
[~2022-04-14 15:02] MED LIST changes: +B-1100 M1 PO; +CEFP200 PO; +FOLI1 PO; +Hair, Skin & N1 EACH PO
== END 2022-04-14 17:22 | disposition home or self-care (01) ==
LOC: ER 15:02
DX: M25.512 Pain in left shoulder (principal); M25.522 Pain in left elbow; J44.9 Chronic obstructive pulmonary disease, unspecified; F17.200 Nicotine dependence, unspecified, uncomplicated; V03.00XA Pedestrian on foot injured in collision with car, pick-up truck or van in nontraffic accident, initial encounter; Y92.481 Parking lot as the place of occurrence of the external cause; Z79.899 Other long term (current) drug therapy
CPT/HCPCS: 70450; 72040; 73030; 73070

== ENCOUNTER 2022-05-08 20:12 | Emergency (ER) | payer OTHER ==
[~2022-05-08] VITALS: Ht 185.4 cm; Wt 83.9 kg
[2022-05-08] MEDS ORDERED: IBUP800 PO (21:49)
== END 2022-05-08 22:18 | disposition home or self-care (01) ==
LOC: ER 20:12
DX: M25.512 Pain in left shoulder (principal); M25.522 Pain in left elbow; F17.200 Nicotine dependence, unspecified, uncomplicated; V03.90XA Pedestrian on foot injured in collision with car, pick-up truck or van, unspecified whether traffic or nontraffic accident, initial encounter; Z79.899 Other long term (current) drug therapy
CPT/HCPCS: A9270

== ENCOUNTER 2022-09-05 14:43 | Emergency (ER) | payer OTHER ==
[~2022-09-05] VITALS: Ht 185.4 cm; Wt 86.2 kg
[~2022-09-05 14:43] MED LIST changes: +IBUP800 PO
[2022-09-05 16:21] LABS: BASOPHILS ABSOLUTE AUTO 0.03 K/mm3 (0.00-0.23); BASOPHILS PERCENT AUTO 0 % (0-2); EOSINOPHILS ABSOLUTE AUTO 0.04 K/mm3 (0.00-0.68); EOSINOPHILS PERCENT AUTO 1 % (0-6); Hematocrit 46.9 % (37.0-53.0); Hemoglobin 15.5 g/dL (13.5-17.5); IMMATURE GRAN ABSOLUTE AUTO 0.04 K/mm3 (0.00-0.10); IMMATURE GRAN PERCENT AUTO 1 % (0-1); LYMPHOCYTES ABSOLUTE AUTO 1.95 K/mm3 (0.84-5.20); LYMPHOCYTES PERCENT AUTO 26 % (21-46); MONOCYTES ABSOLUTE AUTO 0.58 K/mm3 (0.16-1.47); MONOCYTES PERCENT AUTO 8 % (4-13); Mean Corpuscular HGB 32.2 pg (26.0-34.0); Mean Corpuscular Volume 97 fL (80-100); Mean Platelet Volume 9.1 fL (9.1-12.4); NEUTROPHILS ABSOLUTE AUTO 4.82 K/mm3 (1.96-9.15); NEUTROPHILS PERCENT AUTO 65 % (41-73); Platelet Count 214 K/mm3 (150-400); RDW Coefficient Variation 14.4 % (11.7-14.2); RDW Standard Deviation 51.6 fL (35.1-46.3); Red Blood Cell Count 4.82 M/mm3 (4.30-5.90); White Blood Cell Count 7.46 K/mm3 (4.00-11.30)
[2022-09-05 16:44] LABS: Albumin, Blood 4.1 g/dL (3.4-5.0); Bilirubin, Total 0.5 mg/dL (0.1-1.0); Bun/Creatinine Ratio 9.8 (12.0-20.0); Calcium, Blood 9.4 mg/dL (8.5-10.1); Creatinine, Blood 0.82 mg/dL (0.60-1.20); Globulin, Blood 4.3 g/dL (2.2-4.0); Potassium, Blood 4.2 mmol/L (3.5-5.5); Total Protein, Blood 8.4 g/dL (6.4-8.2)
[2022-09-05] MEDS ORDERED: CEPH500 PO (16:59)
== END 2022-09-05 17:15 | disposition home or self-care (01) ==
LOC: ER 14:43
PROVIDERS: Emergency Medicine
DX: S01.81XA Laceration without foreign body of other part of head, initial encounter (principal); S60.511A Abrasion of right hand, initial encounter; F10.129 Alcohol abuse with intoxication, unspecified; J44.9 Chronic obstructive pulmonary disease, unspecified; F17.200 Nicotine dependence, unspecified, uncomplicated; Y90.7 Blood alcohol level of 200-239 mg/100 ml; V19.9XXA Pedal cyclist (driver) (passenger) injured in unspecified traffic accident, initial encounter
CPT/HCPCS: 36415; 70450; 70486; 72125; 73110; 73130; 80053; 85025; G0480; J7030

== ENCOUNTER 2022-11-02 20:02 | Inpatient (IN) | payer OTHER ==
[~2022-11-02] VITALS: Ht 185.4 cm; Wt 84.1 kg
[~2022-11-02 20:02] MED LIST changes: +CEPH500 PO; +CHLO25 PO
[2022-11-02 21:43] LABS: BASOPHILS ABSOLUTE AUTO 0.02 K/mm3 (0.00-0.23); BASOPHILS PERCENT AUTO 0 % (0-2); EOSINOPHILS ABSOLUTE AUTO 0.07 K/mm3 (0.00-0.68); EOSINOPHILS PERCENT AUTO 1 % (0-6); Hemoglobin 14.2 g/dL (13.5-17.5); IMMATURE GRAN ABSOLUTE AUTO 0.02 K/mm3 (0.00-0.10); IMMATURE GRAN PERCENT AUTO 0 % (0-1); LYMPHOCYTES ABSOLUTE AUTO 1.66 K/mm3 (0.84-5.20); LYMPHOCYTES PERCENT AUTO 18 % (21-46); MONOCYTES ABSOLUTE AUTO 0.65 K/mm3 (0.16-1.47); MONOCYTES PERCENT AUTO 7 % (4-13); Mean Corpuscular HGB 31.8 pg (26.0-34.0); Mean Corpuscular HGB Conc 33.8 g/dL (31.5-36.5); Mean Corpuscular Volume 94 fL (80-100); Mean Platelet Volume 10.5 fL (9.1-12.4); NEUTROPHILS ABSOLUTE AUTO 7.01 K/mm3 (1.96-9.15); NEUTROPHILS PERCENT AUTO 74 % (41-73); Platelet Count 74 K/mm3 (150-400); RDW Coefficient Variation 14.6 % (11.7-14.2); Red Blood Cell Count 4.46 M/mm3 (4.30-5.90); White Blood Cell Count 9.43 K/mm3 (4.00-11.30)
[2022-11-02 21:59] LABS: Albumin, Blood 3.7 g/dL (3.4-5.0); Albumin/Globulin Ratio 0.8 (0.8-1.8); Bilirubin, Total 0.6 mg/dL (0.1-1.0); Bun/Creatinine Ratio 15.2 (12.0-20.0); Calcium, Blood 10.2 mg/dL (8.5-10.1); Creatinine, Blood 0.92 mg/dL (0.60-1.20); Globulin, Blood 4.5 g/dL (2.2-4.0); Magnesium, Blood 1.8 mg/dL (1.6-2.4); Total Protein, Blood 8.2 g/dL (6.4-8.2)
[2022-11-03] VITALS (52 sets, daily range): BP systolic 107–138; BP diastolic 65–100
--- NOTE | 2022-11-03 01:21 | NUR ---
PT ADMITTED TO ROOM ICU 6 FROM EMERGENCY DEPARTMENT AT 0010 THIS MORNING. PT HAD BEEN MEDICATED WITH 3 MG ATIVAN PRIOR TO LEAVING EMERGENCY DEPARTMENT AND IS ON PRECEDEX AT 0.7 MCG'S/KG/HOUR. SECURITY ACCOMPANIES PT TO ROOM. DID CHANGE RESTRAINTS TO NON BEHAVIORAL SECONDARY TO PT BEING PROPERLY MEDICATED FOR ETOH W/D'S. WILL REVIEW CHART AND PLAN OF CARE FOR THIS PT.
[2022-11-03 03:39] LABS: BASOPHILS ABSOLUTE AUTO 0.02 K/mm3 (0.00-0.23); BASOPHILS PERCENT AUTO 0 % (0-2); EOSINOPHILS ABSOLUTE AUTO 0.07 K/mm3 (0.00-0.68); EOSINOPHILS PERCENT AUTO 1 % (0-6); Hematocrit 41.3 % (37.0-53.0); Hemoglobin 13.9 g/dL (13.5-17.5); IMMATURE GRAN ABSOLUTE AUTO 0.03 K/mm3 (0.00-0.10); IMMATURE GRAN PERCENT AUTO 0 % (0-1); LYMPHOCYTES ABSOLUTE AUTO 1.35 K/mm3 (0.84-5.20); LYMPHOCYTES PERCENT AUTO 14 % (21-46); MONOCYTES PERCENT AUTO 6 % (4-13); Mean Corpuscular HGB Conc 33.7 g/dL (31.5-36.5); Mean Corpuscular Volume 95 fL (80-100); Mean Platelet Volume 11.4 fL (9.1-12.4); NEUTROPHILS ABSOLUTE AUTO 7.49 K/mm3 (1.96-9.15); NEUTROPHILS PERCENT AUTO 78 % (41-73); Platelet Count 72 K/mm3 (150-400); RDW Coefficient Variation 14.6 % (11.7-14.2); RDW Standard Deviation 51.4 fL (35.1-46.3); Red Blood Cell Count 4.35 M/mm3 (4.30-5.90); White Blood Cell Count 9.56 K/mm3 (4.00-11.30)
[2022-11-03 04:00] LABS: Albumin, Blood 3.3 g/dL (3.4-5.0); Albumin/Globulin Ratio 0.8 (0.8-1.8); Bilirubin, Total 0.7 mg/dL (0.1-1.0); Bun/Creatinine Ratio 14.6 (12.0-20.0); Calcium, Blood 9.2 mg/dL (8.5-10.1); Creatinine, Blood 0.75 mg/dL (0.60-1.20); Globulin, Blood 4.1 g/dL (2.2-4.0); Potassium, Blood 3.5 mmol/L (3.5-5.5); Total Protein, Blood 7.4 g/dL (6.4-8.2)
--- NOTE | 2022-11-03 06:45 | NUR ---
HAVE TITRATED PRECEDEX DOWN TO 0.5 MCG'S/KG/HOUR. PT HAS AWAKEN AND BECOMES VERY AGITATED AND THRASHING IN BED. DID OPT TO ADMINISTER 2 MG ATIVAN. WITH GOOD RELIEF FROM ETOH WITHDRAWALS. PT'S VSS THROUGHOUT THIS NIGHT. WILL CONTINUE TO MONITOR PT, AND WILL REPORT OFF TO ONCOMING RN.
--- NOTE | 2022-11-03 07:00 | NUR ---
ASSUME CARE: I have assumed care of this patient.
--- NOTE | 2022-11-03 12:22 | NUR ---
PROVIDER UPDATE: Dr Cupl called and updated on pt status.
[2022-11-03 13:08] LABS: U Amphetamine Screen Not Detected; U Barbituate Screen DETECTED; U Benzodiazapine Screen DETECTED; U Buprenorphine Screen Not Detected; U Cannabinoids Screen DETECTED; U Cocaine Screen Not Detected; U Methadone Screen Not Detected; U Methamphetamine Screen Not Detected; U Opiates Screen Not Detected; U Oxycodone Screen Not Detected; U Phencyclidine Screen Not Detected; U Propoxyphene Screen Not Detected
--- NOTE | 2022-11-03 15:43 | NUR ---
PROVIDER UPDATE: RT noted concern for aspiration. Pt reports hx of GERD treated with daily PPI. See new orders
--- NOTE | 2022-11-03 18:13 | NUR ---
END OF SHIFT SUMMARY: NEURO: PATIENT IS ORIENTED TO SELF AND RESPONDS TO STIMULATION. HE IS ABLE TO MOVE ALL EXTREMITIES AND FOLLOW SOME COMMANDS FOR A SHORT AMOUNT OF TIME. PERRLA. PT IS RECIEVING 0.2MC/KG/HR OF PRECIDEX. RESP: LUNG SOUNDS CLEAR IN ALL QUADRANTS. PT IS ON 1L NC DUE TO PERIODS OF DESAT. CARDIO: NORMAL SINUS RHYTHM. STEADY RATE IN THE 70S GI: NO BM TODAY. BOWEL SOUNDS HEARD IN ALL QUADRANTS : BLADDER SCANNED PT DUE TO NO OUTPUT. BLADDER SCAN READ 999+. STRAIGHT CATH WAS PERFORMED AND 1100CC WAS COLLECTED. BLADDER SCAN WAS PERFORMED AGAIN AT 1630 AND PT HAD 999+. DR CARROLL, ORDER TO PLACE CASE. SKIN: NO NEW SKIN BREAKDOWN. LINES: 18G LAC, 20G RAC. BOTH PATENT AND FLUSHING.
--- NOTE | 2022-11-03 18:30 | NUR ---
PROVIDER UPDATE: Dr Duran called and notified of continued retention. New order for bo catheter.
[2022-11-03 19:50] LABS: Source, Urine Foley catheter
[2022-11-03 19:53] LABS: Appearance, Urine Clear (Clear); Bilirubin, Urine Neg (Neg); Blood, Urine Neg (Neg); Color, Urine Yellow (P-Yellow); Glucose Qualitative, Urine Neg (Neg); Ketones, Urine Neg (Neg); Leukocyte Esterase, Urine 2+ (Neg); Nitrite, Urine Neg (Neg); Protein, Urine Neg (Neg); Specific Gravity, Urine 1.015 (1.003-1.022); Urobilinogen, Urine NORM (Normal)
--- NOTE | 2022-11-03 20:00 | NUR ---
ASSUMED CARE OF PT AT 1915. REPORT RECEIVED AT BEDSIDE. PT PRESENTS IN BED. RESTING. PER REPORT PT HAD THIRD BLADDER SCAN DONE THAT REVEALED > [address] CASE PER ORDERS AND PROTOCOL. PRECEDEX AT 0.2MCG'S/KG/HOUR. DID INCREASE TO 0.3MCG'S/KG/HOUR. 16 [place]AN CASE CATHETER PLACED WITHOUT ISSUES. RETURN OF YELLOW URINE. SAMPLE SENT TO LAB FOR UA. PT HAS > 1000 ML URINE OUT. DID OPT TO REMOVE TOUGH CUFF RESTRAINTS FROM PT. HE IS ABLE TO ASK WHAT THE DAY IS AT THIS TIME. WILL MONITOR FOR SAFETY AND FOR WITHDRAWAL SYMPTOM ESCALATIONS. WILL REVIEW CHART AND PLAN OF CARE FOR THIS PT.
[2022-11-03 20:05] LABS: Red Blood Cells, Urine 0-2 /hpf (0-2)
[2022-11-03 20:06] LABS: Bacteria Mod /hpf; Squamous Epithelial Cells Rare /hpf (Few)
--- NOTE | 2022-11-03 21:30 | NUR ---
HAVE EMPTIED 2000 ML URINE FROM NEW CASE BAG. PT HAS BEEN MEDICATED ONCE WITH 2 MG ATIVAN. HAS REMAINED OUT OF RESTRAINTS. NO ATTEMPTS TO PULL AT LINES OR GET OUT OF BED WITHOUT ASSIST.
[2022-11-04] VITALS (16 sets, daily range): BP systolic 97–128; BP diastolic 73–104
[2022-11-04 03:22] LABS: BASOPHILS ABSOLUTE AUTO 0.03 K/mm3 (0.00-0.23); BASOPHILS PERCENT AUTO 0 % (0-2); EOSINOPHILS ABSOLUTE AUTO 0.14 K/mm3 (0.00-0.68); EOSINOPHILS PERCENT AUTO 1 % (0-6); Hematocrit 44.3 % (37.0-53.0); Hemoglobin 14.5 g/dL (13.5-17.5); IMMATURE GRAN ABSOLUTE AUTO 0.04 K/mm3 (0.00-0.10); IMMATURE GRAN PERCENT AUTO 0 % (0-1); LYMPHOCYTES ABSOLUTE AUTO 1.48 K/mm3 (0.84-5.20); LYMPHOCYTES PERCENT AUTO 14 % (21-46); MONOCYTES ABSOLUTE AUTO 0.75 K/mm3 (0.16-1.47); MONOCYTES PERCENT AUTO 7 % (4-13); Mean Corpuscular HGB 31.5 pg (26.0-34.0); Mean Corpuscular HGB Conc 32.7 g/dL (31.5-36.5); Mean Corpuscular Volume 96 fL (80-100); Mean Platelet Volume 10.8 fL (9.1-12.4); NEUTROPHILS ABSOLUTE AUTO 8.05 K/mm3 (1.96-9.15); NEUTROPHILS PERCENT AUTO 77 % (41-73); Platelet Count 86 K/mm3 (150-400); RDW Coefficient Variation 14.6 % (11.7-14.2); RDW Standard Deviation 51.8 fL (35.1-46.3); Red Blood Cell Count 4.61 M/mm3 (4.30-5.90); White Blood Cell Count 10.49 K/mm3 (4.00-11.30)
[2022-11-04 03:39] LABS: Albumin/Globulin Ratio 0.7 (0.8-1.8); Bilirubin, Total 0.8 mg/dL (0.1-1.0); Bun/Creatinine Ratio 10.2 (12.0-20.0); Calcium, Blood 9.2 mg/dL (8.5-10.1); Creatinine, Blood 0.78 mg/dL (0.60-1.20); Globulin, Blood 4.4 g/dL (2.2-4.0); Potassium, Blood 3.9 mmol/L (3.5-5.5); Total Protein, Blood 7.4 g/dL (6.4-8.2)
--- NOTE | 2022-11-04 05:29 | NUR ---
PT HAS CONTINUED ON PRECEDEX 0.4 MCG'S/KG/HOUR THROUGH THE NIGHT. HAVE ONLY MEDICATED PT ONCE WITH 2 MG ATIVAN FOR INCREASING AGITATION. PT HAS NOT MADE ANY ATTEMPTS TO PULL AT LINES. HAS HAD 2300 ML URINE OUT THROUGH THE NIGHT. WILL CONTINUE TO MONITOR PT, AND WILL REPORT OFF TO ONCOMING RN.
--- NOTE | 2022-11-04 07:00 | NUR ---
ASSUME CARE: I have assumed care of this patient.
--- NOTE | 2022-11-04 12:48 | NUR ---
FAMILY CONTACTED: BROTHER TERI CALLED AND UPDATED PER PT REQUEST.
--- NOTE | 2022-11-04 17:37 | NUR ---
END OF SHIFT SUMMARY: NEURO: A&OX4. PT IS ABLE TO FOLLOW COMMANDS AND MOVE ALL EXTREMITIES. RESP: LUNG SOUNDS CLEAR IN ALL GREWAL UPON AUSCULATION. PT HAS A PRODUCTIVE COUGH AND HAS BEEN USING INCENTIVE SPIROMETER. CARDIO: NORMAL SINUS RHYTHM IN THE 90S. GI: BM TODAY. BOWEL SOUNDS PRESENT IN ALL QUADRANTS. : CASE DC'D TODAY. PT HAS BEEN CONTINENT OF URINE. SKIN: NO NEW SKIN BREAKDOWN LINES: 18G LAC, 20G RAC
--- NOTE | 2022-11-04 22:07 | NUR ---
ASSUMED CARE ASSUMED CARE AT 1900. PT A/O X3. FOLLOWING DIRECTIONS AND ABLE TO COMMUNICATE NEEDS. PT VERY ANXIOUS AND MODERATELY TREMULOUS. PT STATES THAT TREMORS ARE A TRIGGER FOR HIM, AND WHEN THEY HAPPEN HE WANTS TO DRINK. CIWA 13. MEDICATED PER EMAR. VSS. ON RA. SR/ST RATE 90-100'S. PT COUGHING UP WHITE CANO SPUTUM AND IS WHEEZY AT TIMES. SOB WITH EXCERTION. HOSP CALLED REGARDING BD PROTOCOL. ORDER RECEIVED. ONE ASSIST TO BRP. BED ALARM IN PLACE.
[2022-11-05 00:15] VITALS: BP 128/80
--- NOTE | 2022-11-05 00:22 | NUR ---
UPDATE CAT TO HOSP REGARDING PT REQUESTING TO SWITCH FROM NICOTINE PATCH TO NICOTINE GUM. ORDER RECEIVED.
[2022-11-05 03:16] LABS: BASOPHILS ABSOLUTE AUTO 0.04 K/mm3 (0.00-0.23); BASOPHILS PERCENT AUTO 1 % (0-2); EOSINOPHILS ABSOLUTE AUTO 0.08 K/mm3 (0.00-0.68); EOSINOPHILS PERCENT AUTO 1 % (0-6); Hematocrit 42.9 % (37.0-53.0); Hemoglobin 14.4 g/dL (13.5-17.5); IMMATURE GRAN ABSOLUTE AUTO 0.02 K/mm3 (0.00-0.10); IMMATURE GRAN PERCENT AUTO 0 % (0-1); LYMPHOCYTES ABSOLUTE AUTO 1.71 K/mm3 (0.84-5.20); LYMPHOCYTES PERCENT AUTO 28 % (21-46); MONOCYTES PERCENT AUTO 12 % (4-13); Mean Corpuscular HGB Conc 33.6 g/dL (31.5-36.5); Mean Corpuscular Volume 95 fL (80-100); Mean Platelet Volume 10.5 fL (9.1-12.4); NEUTROPHILS ABSOLUTE AUTO 3.51 K/mm3 (1.96-9.15); NEUTROPHILS PERCENT AUTO 58 % (41-73); Platelet Count 109 K/mm3 (150-400); RDW Coefficient Variation 14.6 % (11.7-14.2); RDW Standard Deviation 51.5 fL (35.1-46.3); White Blood Cell Count 6.06 K/mm3 (4.00-11.30)
[2022-11-05 03:17] VITALS: BP 126/77
[2022-11-05 03:33] LABS: Albumin, Blood 3.1 g/dL (3.4-5.0); Albumin/Globulin Ratio 0.7 (0.8-1.8); Bilirubin, Total 0.5 mg/dL (0.1-1.0); Bun/Creatinine Ratio 12.1 (12.0-20.0); Calcium, Blood 9.3 mg/dL (8.5-10.1); Creatinine, Blood 0.99 mg/dL (0.60-1.20); Globulin, Blood 4.6 g/dL (2.2-4.0); Potassium, Blood 3.8 mmol/L (3.5-5.5); Total Protein, Blood 7.7 g/dL (6.4-8.2)
--- NOTE | 2022-11-05 05:13 | NUR ---
SHIFT SUMMARY NO ACUTE EVENTS T/O NIGHT. PT RECEIVED THREE DOSES OF LIBRIUM T/O SHIFT. CIWA 14-10. A/O X 3. ANXIOUS AT TIMES. PT SLEPT APPROX 2 HOURS. PT ABLE TO UPDATE BROTHER ON PHONE. VSS. SR RATE 80-90'S. VOIDING WELL, NO S/S OF RETENTION. PT ONE ASSIST TO BRP. BED ALARM IN PLACE. CALL LIGHT IN REACH AND UTILIZED. WILL REPORT OFF TO [facility].
[2022-11-05 08:00] VITALS: BP 118/71
--- NOTE | 2022-11-05 08:05 | NUR ---
ASSUMED CARE: REPORT RECEIVED FROM MERY HUNTLEY. ASSUMED CARE OF THIS PT AT APPROX 0700. ON ASSESSMENT, THE PT IS AWAKE, A&O TO ALL. HIS SPEECH IS SLURRED & CAN BE DIFFICULT TO UNDERSTAND AT TIMES. CIWA 6 THIS AM. LS DIM IN BASES, PT ON RA W/ O2 SATS > 95%. MONITOR SHOWS SR W/ HR 80-90s, BP STABLE. NO GI COMPLAINTS, TOLERATING PO INTAKE WELL. VOIDS URINE W/O DIFFICULTY USING URINAL. SKIN CONDITION OVERALL INTACT. LARGE AREAS OF WELL-HEALED DUTTON W/ HX SKIN GRAFTING NOTED TO BILAT HANDS & UPPER BACK. THE PT HAS AMBULATED IN THE HALLS W/ NURSING STAFF THIS AM & IS "FEELING BETTER" W/ INCREASED MOVEMENT. WILL CONTINUE TO MONITOR & UPDATE NEEDED.
[2022-11-05 11:50] VITALS: BP 99/58
--- NOTE | 2022-11-05 12:36 | NUR ---
DR CAMACHO: PROVIDER AT BEDSIDE TO EVAL PT THIS AM. STS TO TRANSFER TO MEDICAL W/ TELE. ORDERS PLACED FOR LACTULOSE TID, PT REPORTED NORMAL BM YESTERDAY. NO OTHER CHANGES AT THIS TIME.
--- NOTE | 2022-11-05 14:11 | NUR ---
TRANSFER TO MEDICAL FLOOR: REPORT HAS BEEN GIVEN TO RN ON MEDICAL FLOOR TO ASSUME CARE. THE PT, CHART & ALL BELONGINGS HAVE BEEN TAKEN UP W/ THE PT AT APPROX 1400.
--- NOTE | 2022-11-05 14:27 | NUR ---
LATE ENTRY/ICU CRIS 1350: RECEIVED PT FROM ICU 16 TO MED BED 358 AFTER RECEIVING REPORT FROM SHIRT SEWER. PT PLACED IN BED, MADE COMFORTABLE, ORIENTED TO ROOM & UNIT ROUTINE. PT A&O X 4. PLEASANT & COOPERATIVE. DENIES PAIN, SOB, DISCOMFORT OR NAUSEA. STATES HE WOULD LIKE TO TAKE A NAP. PROVIDED HIM WITH A WARM BLANKET. ROOM LIGHTS OFF, CALL LIGHT WITHIN REACH & BED IN LOW POSITION.
[2022-11-05 14:49] VITALS: BP 111/66
--- NOTE | 2022-11-05 14:53 | NUR ---
TELE PLACED. SR HR 70-75.
--- NOTE | 2022-11-05 17:08 | NUR ---
SHIFT SUMMARY NO ACUTE CHANGES SINCE TRANSFER FROM ICU. PT HAS APPEARED TO BE SLEEPING WITH EYES CLOSED, RESP EVEN & UNLABORED UNTIL APPROX 1700. IS NOW UP AMBULATING HALLWAYS WITH A WALKER, GAIT STEADY & STRONG. IS PLEASANT & COOPERATIVE WITH CARE. CIWA'S ARE 2 AT THIS TIME.
[2022-11-05 20:58] VITALS: BP 126/90
--- NOTE | 2022-11-06 04:12 | NUR ---
SHIFT SUMMARY A/OX4, PLEASANT AND COOPERATIVE CARE. AMBULATING INDEPENDENTLY IN THE HALLS. TELE SR 70S-90S, DENIES CHEST PAIN/PRESSURE. SPO2 >92% ON RA. CIWA 6>, MEDICATED WITH PO LIBRIUM. VSS, NO ACUTE CHANGES AT THIS TIME. BED IN LOWEST POSITION WITH CALL LIGHT IN REACH. WILL CONTINUE TO MONITOR AND REPORT TO ONCOMING RN.
[2022-11-06 04:21] VITALS: BP 114/79
[2022-11-06 05:15] LABS: BASOPHILS ABSOLUTE AUTO 0.05 K/mm3 (0.00-0.23); BASOPHILS PERCENT AUTO 1 % (0-2); EOSINOPHILS ABSOLUTE AUTO 0.18 K/mm3 (0.00-0.68); EOSINOPHILS PERCENT AUTO 3 % (0-6); Hematocrit 41.7 % (37.0-53.0); Hemoglobin 14.1 g/dL (13.5-17.5); IMMATURE GRAN ABSOLUTE AUTO 0.05 K/mm3 (0.00-0.10); IMMATURE GRAN PERCENT AUTO 1 % (0-1); LYMPHOCYTES ABSOLUTE AUTO 1.74 K/mm3 (0.84-5.20); LYMPHOCYTES PERCENT AUTO 29 % (21-46); MONOCYTES ABSOLUTE AUTO 1.01 K/mm3 (0.16-1.47); MONOCYTES PERCENT AUTO 17 % (4-13); Mean Corpuscular HGB 32.1 pg (26.0-34.0); Mean Corpuscular HGB Conc 33.8 g/dL (31.5-36.5); Mean Corpuscular Volume 95 fL (80-100); NEUTROPHILS ABSOLUTE AUTO 3.08 K/mm3 (1.96-9.15); NEUTROPHILS PERCENT AUTO 51 % (41-73); Platelet Count 150 K/mm3 (150-400); RDW Coefficient Variation 14.5 % (11.7-14.2); RDW Standard Deviation 50.6 fL (35.1-46.3); Red Blood Cell Count 4.39 M/mm3 (4.30-5.90); White Blood Cell Count 6.11 K/mm3 (4.00-11.30)
[2022-11-06 05:44] LABS: Albumin, Blood 3.1 g/dL (3.4-5.0); Albumin/Globulin Ratio 0.7 (0.8-1.8); Bilirubin, Total 0.5 mg/dL (0.1-1.0); Bun/Creatinine Ratio 9.2 (12.0-20.0); Calcium, Blood 9.3 mg/dL (8.5-10.1); Creatinine, Blood 0.87 mg/dL (0.60-1.20); Globulin, Blood 4.5 g/dL (2.2-4.0); Potassium, Blood 3.7 mmol/L (3.5-5.5); Total Protein, Blood 7.6 g/dL (6.4-8.2)
[2022-11-06 07:54] VITALS: BP 103/80
[2022-11-06] MEDS ORDERED: CHLO25 PO (13:34)
[2022-11-06] MEDS ORDERED: FOLI1 PO (13:35)
[2022-11-06] MEDS ORDERED: B-1100 M2 PO (13:35)
[2022-11-06 14:36] VITALS: BP 103/81
--- NOTE | 2022-11-06 15:49 | NUR ---
DISCHARGE PT A&OX4, HARD SCRIPT IN HAND. VSS. TOLERATING PO INTAKE, DENIES HALLUCINATION/WITHDRAWL SYMPTOMS. ESCORT TO CURBSIDE, TAXI PROVIDED.
== END 2022-11-06 15:04 | disposition home or self-care (01) | DRG 897 ==
LOC: ER 20:02 → MEDS 23:51 → ICUW 23:51 → ICUE 23:51 → MEDS 23:51 → ICUE 11-03 00:10 → ICUW 11-04 18:19 → MEDS 11-05 14:15 → ENPENDDIS 11-06 13:31 → MEDS 11-06 15:04
PROVIDERS: Emergency Medicine; Family Medicine; Student in an Organized Health Care Education/Training Program; ADMIT Internal Medicine
PROC: HZ2ZZZZ Detoxification Services for Substance Abuse Treatment (ICD-10-PCS; principal; 2022-11-02)
PROC: 0T9B70Z Drainage of Bladder with Drainage Device, Via Natural or Artificial Opening (ICD-10-PCS; 2022-11-02)
DX: F10.231 Alcohol dependence with withdrawal delirium (principal); K70.10 Alcoholic hepatitis without ascites; F22 Delusional disorders; R74.01 Elevation of levels of liver transaminase levels; R73.9 Hyperglycemia, unspecified; D69.6 Thrombocytopenia, unspecified; F12.10 Cannabis abuse, uncomplicated; J44.9 Chronic obstructive pulmonary disease, unspecified; F17.210 Nicotine dependence, cigarettes, uncomplicated; Z79.2 Long term (current) use of antibiotics; Z79.899 Other long term (current) drug therapy; Y90.0 Blood alcohol level of less than 20 mg/100 ml
CPT/HCPCS: 36415; 51701; 51702; 70450; 80053; 81001; 82947; 83735; 85025; 87086; 93005; 93010; 94640; 94664; 94760; 94762; 96365; 96375; 96376; 99285-25; A9270; G0480; J1650; J2060; J2405; J2560; J3411; J7042; J7050

== ENCOUNTER 2024-10-17 04:45 | Emergency (ER) | payer OTHER ==
[~2024-10-17] VITALS: Ht 185.4 cm; Wt 90.7 kg
[~2024-10-17 04:45] MED LIST changes: +B-1100 M2 PO
[2024-10-17 06:24] VITALS: BP 119/72
[2024-10-17] MEDS ORDERED: NAPROXEN250 M1 PO (06:28)
[2024-10-17] MEDS ORDERED: Naproxen 250 MG TAB PO ONE (06:30)
== END 2024-10-17 06:35 | disposition home or self-care (01) ==
LOC: ER 04:45
DX: S43.401A Unspecified sprain of right shoulder joint, initial encounter (principal); J44.9 Chronic obstructive pulmonary disease, unspecified; V49.9XXA Car occupant (driver) (passenger) injured in unspecified traffic accident, initial encounter
CPT/HCPCS: 73030; 99283-25; A9270

== ENCOUNTER 2025-04-20 01:43 | Emergency (ER) | payer OTHER ==
[~2025-04-20] VITALS: Ht 185.4 cm; Wt 81.7 kg
[~2025-04-20 01:43] MED LIST changes: +NAPROXEN250 M1 PO
[2025-04-20 02:11] VITALS: BP 139/76
[2025-04-20] MEDS ORDERED: Lidocaine 4% 1 Patch TOP ONE (02:15)
[2025-04-20] MEDS ORDERED: Ketorolac Tromethamine 15mg Vial IM ONE (02:15)
== END 2025-04-20 02:24 | disposition home or self-care (01) ==
LOC: ER 01:43
DX: S46.811A Strain of other muscles, fascia and tendons at shoulder and upper arm level, right arm, initial encounter (principal); J44.9 Chronic obstructive pulmonary disease, unspecified; Z79.1 Long term (current) use of non-steroidal anti-inflammatories (NSAID); V40.6XXA Car passenger injured in collision with pedestrian or animal in traffic accident, initial encounter
CPT/HCPCS: 96372; 99283-25; A9270; J1885